=== PATIENT | male | born 1975 | race Caucasian/White ===

== ENCOUNTER 2020-04-18 18:21 | Emergency (ER) | payer OTHER ==
[~2020-04-18] VITALS: Ht 167.6 cm; Wt 72.6 kg
== END 2020-04-18 22:47 | disposition home or self-care (01) ==
LOC: ER 18:21
DX: S86.812A Strain of other muscle(s) and tendon(s) at lower leg level, left leg, initial encounter (principal); M79.662 Pain in left lower leg; X50.9XXA Other and unspecified overexertion or strenuous movements or postures, initial encounter; Y93.89 Activity, other specified; Y92.69 Other specified industrial and construction area as the place of occurrence of the external cause; Y99.8 Other external cause status